=== PATIENT | male | born 1965 | race African-American/Black ===

== ENCOUNTER 2019-11-03 16:25 | Outpatient (CLI) | payer BC, SELFPAY ==
--- NOTE | ~2019-11-03 | CT_ITS ---
EXAMINATION: CT abdomen pelvis wo/w con DATE: 11/03/2019 17:43 INDICATION: Left renal cyst TECHNIQUE: Computed tomography (CT) of the abdomen and pelvis was performed without and with 100 cc O mnipaque 350 intravenous contrast. The dose-length product was 4299.03 mGy-cm. Automated exposure control and iterative reconstruction technique were employed. COMPARISON: None. FINDINGS: Lung bases are unremarkable. No significant pleural or pericardial effusion. Heart size is normal. The liver, spleen, pancreas, adrenal glands and right kidney are unremarkable. No hydronephro sis. There is a subtle hypodense 2 cm mass of the left kidney laterally, not well characterized due t o streak artifact and poorly defined margins. Recommend further evaluation with MRI. No significant h ydronephrosis. There is a smaller subcentimeter hypodensity of the lower pole of the left kidney, too small to characterize. Small fat-containing umbilical hernia. Nonobstructive bowel gas pattern. No l ymphadenopathy. No significant vascular abnormality. Gallbladder is present. IMPRESSION: 1. Indeterminate left renal masses, largest measuring 2 cm. Recommend correlation with MRI for furthe r characterization. Reviewed, dictated and finalized at location A. [employer] IMPRESSION: 1. Indeterminate left renal masses, largest measuring 2 cm. Recommend correlati on with MRI for further characterization.
[2019-11-03 17:07] LABS: Blood Urea Nitrogen 9 mg/dL (8-26); Estimated Glomerular Filt Rate > 60
== END 2019-11-03 16:26 | disposition home or self-care (01) ==
PROVIDERS: Visit Provider Urology
DX: N28.89 Other specified disorders of kidney and ureter (principal)
CPT/HCPCS: 74178; Q9967

== ENCOUNTER 2019-11-21 14:47 | Outpatient (CLI) | payer BC, SELFPAY ==
--- NOTE | ~2019-11-21 | MR_ITS ---
EXAMINATION: MR abdomen wo/w con DATE: 11/21/2019 16:22 INDICATION: Neoplasm of uncertain behavior of left kidney. TECHNIQUE: Magnetic resonance imaging (MRI) of the abdomen was performed without and with 20 mL Multi Edin intravenous contrast. Sequences included coronal T2-weighted FS FSE, coronal and axial FIESTA F S, coronal LAVA-flex, axial LAVA, axial T2-weighted FSE, axial T1-weighted dual-echo FSPGR, axial STI R FSE, and axial DWI. Postcontrast sequences included coronal LAVA-flex and a time course of axial LA VA. COMPARISON: CT abdomen and pelvis 11/03/2019 FINDINGS: The liver, gallbladder, spleen, and pancreas are normal. There is a 4 mm hemorrhagic cyst in right ki dney. There is a 2.1 cm hemorrhagic cyst in left kidney. There are simple cysts in left kidney measur ing up to 1.1 cm. There are no dilated loops of bowel. There is an umbilical hernia containing fat. T here is a subcutaneous lipoma in left anterolateral body wall. There are no pathologically enlarged l ymph nodes. There is no free intraperitoneal fluid. IMPRESSION: 1. Benign cysts in the kidneys. Reviewed, dictated and finalized at location A.
[2019-11-21 15:33] LABS: Estimated Glomerular Filt Rate > 60
== END 2019-11-21 14:48 | disposition home or self-care (01) ==
LOC: ANHIMG 14:52
PROVIDERS: Visit Provider Urology
DX: D41.02 Neoplasm of uncertain behavior of left kidney (principal); N28.1 Cyst of kidney, acquired
CPT/HCPCS: 36415; 74183; A9577